=== PATIENT | female | born 1995 | race Caucasian/White ===

== ENCOUNTER 2017-10-21 16:37 | Emergency (ER) | payer OTHER ==
[~2017-10-21] VITALS: Ht 170.2 cm; Wt 68.5 kg
[2017-10-21 16:44] VITALS: BP 122/57; PULSE 80; RESP 18; TEMP 97.9; O2SAT 99
--- NOTE | 2017-10-21 17:03 | PD ---
HPI Chief Complaint: Foreign Body Time Seen by Provider: 16:55 Travel History International Travel<30 days: No Contact w/Intl Traveler<30days: No Traveled to known affect area: No History of Present Illness HPI This is a 21-year-old female who presents to the emergency department having swallowed her tongue ring 3 days ago during dinner. She feels a foreign body sensation in her throat and she feels like she can almost get up but she cannot. Symptoms are constant, moderate severity, worse with swallowing but she denies any difficulty eating or breathing. PFSH Past Medical History ?: Unknown LMP: unk, just delivered 2 months ago Social History Alcohol Use: No Tobacco Use: No Substance Use: No Allergies-Medications (Allergen,Severity, Reaction): Coded Allergies: No Known Allergies (Verified Adverse Reaction, Unknown, 10/21/17) Reported Meds & Prescriptions Reported Meds & Active Scripts Active No Active Prescriptions or Reported Medications Review of Systems Except as stated in HPI: all other systems reviewed are Neg Physical Exam Narrative GENERAL: Well-nourished, well-developed patient. SKIN: Warm and dry. HEAD: Normocephalic. EYES: No scleral icterus. No injection or drainage. ENT: Normal-appearing posterior pharynx NECK: Supple, trachea midline. CARDIOVASCULAR: Regular rate and rhythm without murmurs. RESPIRATORY: Breath sounds equal bilaterally. No accessory muscle use. GASTROINTESTINAL: Abdomen soft, non-tender, nondistended. MUSCULOSKELETAL: No cyanosis, or edema. Data Data Last Documented VS Vital Signs Date Time Temp Pulse Resp B/P (MAP) Pulse Ox O2 Delivery O2 Flow Rate FiO2 10/21/17 16:44 97.9 80 18 122/57 (78) 99 Orders Orders Soft Tissue Neck (10/21/17 ) Chest, Single Ap (10/21/17 ) Abdomen, Kub Only (10/21/17 ) MDM Medical Decision Making Medical Screen Exam Complete: Yes Emergency Medical Condition: Yes Interpretation(s) X-rays no foreign body Differential Diagnosis Esophageal foreign body, pharyngeal foreign body, abdominal foreign body Narrative Course This is a 21-year-old female who presents to the emergency department with a foreign body sensation in her throat after swallowing a tongue ring. X-rays were obtained which demonstrate no foreign body. I think patient can safely be discharged home. Diagnosis Primary Impression: Globus sensation Patient Instructions: General Instructions Additional Instructions: Follow-up with your primary care physician as needed. Med/Other Pt SpecificInfo: No Change to Meds Scripts No Active Prescriptions or Reported Meds Disposition: 01 DISCHARGE HOME Condition: Stable Narcisa Castrejon MD Oct 21, 2017 17:03
--- NOTE | 2017-10-21 17:24 | RADRPT ---
EXAM DATE: 10/21/2017 5:20 PM EDT AGE/SEX: 21 years / Female INDICATIONS: Evaluate for foreign body. Patient swallowed tongue ring. CLINICAL DATA: This is the patient's initial encounter. Patient reports that signs and symptoms have been present for 3 days and indicates a pain score of 0/10. MEDICAL/SURGICAL HISTORY: None. None. COMPARISON: No prior exams available for comparison. FINDINGS: Two-view examination of the soft tissues of the neck demonstrates the hypopharyngeal airway to have a grossly normal configuration. The trachea is midline. No radiopaque foreign bodies are seen. CONCLUSION: Negative Electronically signed by: Jhonathan Watkins MD 10/21/2017 5:22 PM EDT
--- NOTE | 2017-10-21 17:24 | RADRPT ---
EXAM DATE: 10/21/2017 5:18 PM EDT AGE/SEX: 21 years / Female INDICATIONS: Evaluate for foreign body. Patient swallowed tongue ring. CLINICAL DATA: This is the patient's initial encounter. Patient reports that signs and symptoms have been present for 3 days and indicates a pain score of 0/10. MEDICAL/SURGICAL HISTORY: None. None. COMPARISON: No prior exams available for comparison. FINDINGS: A single AP view of the chest demonstrates the lungs to be symmetrically aerated without evidence of mass, infiltrate or effusion. The cardiomediastinal contours are unremarkable. Osseous structures a re intact. CONCLUSION: Negative chest. No foreign body. Electronically signed by: Jhonathan Watkins MD 10/21/2017 5:23 PM EDT
--- NOTE | 2017-10-21 17:25 | RADRPT ---
EXAM DATE: 10/21/2017 5:20 PM EDT AGE/SEX: 21 years / Female INDICATIONS: Evaluate for foreign body. Patient swallowed tongue ring. CLINICAL DATA: This is the patient's initial encounter. Patient reports that signs and symptoms have been present for 3 days and indicates a pain score of 0/10. MEDICAL/SURGICAL HISTORY: None. None. COMPARISON: No prior exams available for comparison. FINDINGS: The abdominal bowel gas pattern is normal. No abnormal masses, calcifications, or organomegaly is s een. The osseous structures are unremarkable. CONCLUSION: Negative, no radiopaque foreign body Electronically signed by: Jhonathan Watkins MD 10/21/2017 5:24 PM EDT
== END 2017-10-21 18:00 | disposition home or self-care (01) ==
LOC: PHED 16:37
DX: F45.8 Other somatoform disorders (principal); R09.89 Other specified symptoms and signs involving the circulatory and respiratory systems
CPT/HCPCS: 70360; 71045; 74018; 99283